=== PATIENT | female | born 1970 | race Caucasian/White ===

== ENCOUNTER → 2023-12-15 13:06 | Outpatient (REF) | payer OTHER, SELFPAY | LOC: HWRAD 13:06 | PROVIDERS: ATTENDING PHYSICIAN Internal Medicine Hematology & Oncology; FAMILY PHYSICIAN Nurse Practitioner Family | DX: Z78.0 Asymptomatic menopausal state (principal); Z85.3 Personal history of malignant neoplasm of breast | CPT/HCPCS: 77080 ==